=== PATIENT | male | born 1945 | race Caucasian/White ===

== ENCOUNTER 2018-05-25 16:01 | Emergency (ER) | payer OTHER ==
[~2018-05-25] VITALS: Ht 170.2 cm; Wt 111.8 kg
[2018-05-25 16:15] VITALS: Ht 170.2 cm; Wt 111.8 kg
--- NOTE | 2018-05-25 17:24 | PSY ---
Date/Time of Note Date/Time of Note DATE: 05/25/18 TIME: 20:22 Psychiatric Subjective Eval Consent Pt consented to telemedicine: Yes Subjective Evaluation Patient location: emergency Chief Complaint: SUICIDAL IDEATION W/ PLAN TO DRINK HIMSELF TO History of present illness HPI: 72 yo male with ho etoh dependence came to ED intoxicated with etoh stating that he wanted to drink himself to . MD met with pt. he had severe cognitive problems. Could not answer questions except about name. Otherwise would just mumble. Does not know date or location. Could not answer ay question except about name. Past Psych Hx: unable to obtain due to cognitive issues PMHx, allergies, meds; unable to obtain due to cognitive issues MSE: disheveled, marked PMR, latency of speech, response, no eye contact, slow speech, paucity of though ,disorganized, flat affect, impaired cognition, poor attention, oriented x1 Imp: 72 yo male with severe cognitive deficits, unclear if these are acute or chronic MD spoke wtih attending MD in ED who reports pt is new to them; Discussed full imp and plan as below including potential psychosis, delirium wernicke dementia, medical issue Full delirium workup including MRI/CT brain/head, rpr tsh, utox infectious workup (e.g., UA), cbc lfts nh4 electrolytes Utox recommend medicine admit For moderate agitation Zyprexa 5mg po prn For severe agitation chlorpromazine 25mg im prn Alcohol withdrawal precautions with CIWA Daily thiamine 100mg po folate 1mg po mvi consider iv thiamine "banana bag" Social work consult to help with placement, pt likely will need home health aid if he goes home, or half-way 1:1 sitter while on medicine Allergies: Coded Allergies: No Known Allergy (Unverified , 05/25/18) Psychiatric Objective Eval Mental Status Examination: Laboratory Results Laboratory Tests Test 05/25/18 16:23 White Blood Count 10.6 10^3/ul Red Blood Count 4.86 10^6/ul Hemoglobin 12.8 g/dl Hematocrit 39.7 % Mean Corpuscular Volume 81.7 fl Mean Corpuscular Hemoglobin 26.3 pg Mean Corpuscular Hemoglobin Concent 32.2 g/dl Red Cell Distribution Width 28.0 % Platelet Count 231 10^3/UL Mean Platelet Volume 9.6 fl Immature Granulocytes % 0.300 % Neutrophils % 77.7 % Lymphocytes % 15.2 % Monocytes % 6.0 % Eosinophils % 0.2 % Basophils % 0.6 % Nucleated Red Blood Cells % 0.3 /100WBC Immature Granulocytes # 0.030 10^3/ul Neutrophils # 8.3 10^3/ul Lymphocytes # 1.6 10^3/ul Monocytes # 0.6 10^3/ul Eosinophils # 0.0 10^3/ul Basophils # 0.1 10^3/ul Nucleated Red Blood Cells # 0.0 10^3/ul Sodium Level 138 mmol/L Potassium Level 3.9 mmol/L Chloride Level 101 mmol/L Carbon Dioxide Level 17 mmol/L Anion Gap 20 Blood Urea Nitrogen 23 mg/dl Creatinine 0.79 mg/dl Est Glomerular Filtrat Rate mL/min > 60 mL/min Glucose Level 148 mg/dl Calcium Level 10.5 mg/dl Total Bilirubin 0.8 mg/dl Direct Bilirubin 0.00 mg/dl Indirect Bilirubin 0.8 mg/dl Aspartate Amino Transf (AST/SGOT) 32 IU/L Alanine Aminotransferase (ALT/SGPT) 12 IU/L Alkaline Phosphatase 182 IU/L Total Protein 9.1 g/dl Albumin 4.8 g/dl Globulin 4.30 g/dl Albumin/Globulin Ratio 1.11 Salicylates Level < 1.0 mg/dl Acetaminophen Level < 10.0 ug/ml Ethyl Alcohol Level < 10.0 mg/dl Assessment and Plan Recommendation/Plan Multiple antipsychotics: No Discharge Disposition: Other Legal Status: Voluntary MARTHANORA BARNES May 25, 2018 17:24
[2018-05-25] MEDS ORDERED: MULTIVITAMINS 10 ML, THIAMINE 100 MG, FOLIC ACID 1 MG, MAGNESIUM SULFATE 2 GM in SOD CH... IV ONE (18:30)
[2018-05-25] MEDS ORDERED: ASPIRIN 81 MG TAB PO ONE (18:30)
--- NOTE | 2018-05-25 20:00 | ERD ---
ER Documentation Chief Complaint Chief Complaint SUICIDAL IDEATION W/ PLAN TO DRINK HIMSELF TO HPI Patient is a 72-year-old male with diabetes and alcohol abuse who presents with confusion. Please note the history and physical exam is limited secondary to the patient's confusion at this time. He was brought in by ambulance. He says "I have not eaten for weeks". He has heavy alcohol history. He has depression and has had vomiting. He denies suicide to me but per nursing he plans to drink himself to . His doctor is a [facility]. It is difficult to obtain history otherwise. ROS All systems reviewed and are negative except as per history of present illness. Medications Home Meds No Active Prescriptions or Reported Meds Allergies Allergies: Coded Allergies: No Known Allergy (Unverified , 05/25/18) PMhx/Soc History of Surgery: No Anesthesia Reaction: No Hx Neurological Disorder: No Hx Respiratory Disorders: No Hx Cardiac Disorders: No Hx Psychiatric Problems: No Hx Miscellaneous Medical Probl: Yes (DM) Hx Alcohol Use: Yes (CURRENTLY DRUNK) Hx Substance Use: No Hx Tobacco Use: No Smoking Status: Never smoker FmHx Family History: diabetes Physical Exam Vitals Vital Signs Date Temp Pulse Resp B/P (MAP) Pulse Ox O2 O2 Flow FiO2 Time Delivery Rate 05/25/18 98.5 81 24 143/99 98 16:15 (114) Physical Exam Const: Confusion Head: Atraumatic Eyes: Normal Conjunctiva ENT: Normal External Ears, Nose and Mouth. Neck: Full range of motion. No meningismus. Resp: Clear to auscultation bilaterally Cardio: Regular rate and rhythm, no murmurs Abd: Soft, non tender, non distended. Normal bowel sounds Skin: No petechiae or rashes Back: No midline or flank tenderness Ext: No cyanosis, or edema Neur: Awake but confusion Psych: Denies suicidal ideation to me, no homicidal ideation Result Diagram: 05/25/18 1623 05/25/18 1623 Results 24 hrs Laboratory Tests Test 05/25/18 16:23 05/25/18 19:56 White Blood Count 10.6 10^3/ul Red Blood Count 4.86 10^6/ul Hemoglobin 12.8 g/dl Hematocrit 39.7 % Mean Corpuscular Volume 81.7 fl Mean Corpuscular Hemoglobin 26.3 pg Mean Corpuscular Hemoglobin Concent 32.2 g/dl Red Cell Distribution Width 28.0 % Platelet Count 231 10^3/UL Mean Platelet Volume 9.6 fl Immature Granulocytes % 0.300 % Neutrophils % 77.7 % Lymphocytes % 15.2 % Monocytes % 6.0 % Eosinophils % 0.2 % Basophils % 0.6 % Nucleated Red Blood Cells % 0.3 /100WBC Immature Granulocytes # 0.030 10^3/ul Neutrophils # 8.3 10^3/ul Lymphocytes # 1.6 10^3/ul Monocytes # 0.6 10^3/ul Eosinophils # 0.0 10^3/ul Basophils # 0.1 10^3/ul Nucleated Red Blood Cells # 0.0 10^3/ul Sodium Level 138 mmol/L Potassium Level 3.9 mmol/L Chloride Level 101 mmol/L Carbon Dioxide Level 17 mmol/L Anion Gap 20 Blood Urea Nitrogen 23 mg/dl Creatinine 0.79 mg/dl Est Glomerular Filtrat Rate mL/min > 60 mL/min Glucose Level 148 mg/dl Calcium Level 10.5 mg/dl Total Bilirubin 0.8 mg/dl Direct Bilirubin 0.00 mg/dl Indirect Bilirubin 0.8 mg/dl Aspartate Amino Transf (AST/SGOT) 32 IU/L Alanine Aminotransferase (ALT/SGPT) 12 IU/L Alkaline Phosphatase 182 IU/L Total Protein 9.1 g/dl Albumin 4.8 g/dl Globulin 4.30 g/dl Albumin/Globulin Ratio 1.11 Salicylates Level < 1.0 mg/dl Acetaminophen Level < 10.0 ug/ml Ethyl Alcohol Level < 10.0 mg/dl Bedside Urine pH (LAB) 5.5 Bedside Urine Protein (LAB) 2+ Bedside Urine Glucose (UA) Negative Bedside Urine Ketones (LAB) 2+ Bedside Urine Blood 3+ Bedside Urine Nitrite (LAB) Negative Bedside Urine Leukocyte Esterase (L Negative Current Medications Medications Dose Sig/Sarmad Start Time Status Last (Trade) Ordered Route PRN Stop Time Admin Dose Reason Admin 1,000 ml @ Q2H ONCE 05/25/18 Multivitamins 500 mls/hr IV 18:30 10 05/25/18 20:29 ml/Thiamine HCl 100 mg/Folic Acid 1 mg/Magnesium Sulfate 2 gm/ Sodium Chloride Aspirin 162 mg ONCE ONCE 05/25/18 DC (Aspirin) PO 18:30 05/25/18 18:31 Procedures/MDM CT brain negative for mass or bleed per radiology. Patient is a 72-year-old male who presents with confusion. At this point I see no sign of serious or joint abnormality, intracranial hemorrhage, or mass. I doubt stroke as he has no focal weakness. This may be Warnicke's encephalopathy or another acute delirium. Urine dip shows dehydration but no infection. I spoke with [facility] a [facility] for transfer as this is where the patient's insurance is. The patient will be transferred via ambulance. He was given aspirin after he passed a swallow evaluation and had an NIH stroke scale performed. Departure Diagnosis: Primary Impression: Wernickes encephalopathy Additional Impression: Altered mental status Altered mental status type: unspecified Qualified Codes: R41.82 - Altered mental status, unspecified Condition: Serious MOLLY MCARTHUR MD May 25, 2018 20:00
[2018-05-25 20:27] VITALS: BP 146/78; PULSE 77; RESP 16
== END 2018-05-25 21:30 | disposition short-term general hospital (02) ==
LOC: E/R 16:01
DX: E51.2 Wernicke's encephalopathy (principal); R41.82 Altered mental status, unspecified; E11.9 Type 2 diabetes mellitus without complications
CPT/HCPCS: 70450; 80053; 80307; 81001; 82140; 85025; 93005; 99285; J3411; J3475; J7030; 81003